=== PATIENT | male | born 1995 | race Caucasian/White ===

== ENCOUNTER 2016-06-26 19:43 | Emergency (ER) | payer OTHER ==
--- NOTE | 2016-06-26 21:20 | REPUSA ---
Clinical history: Pain. Findings: Real-time ultrasound imaging of the testicles and scrotum was performed. The right testicle measures 4.6 x 2.3 x 3.1 cm. The left testicle measures 4.8 x 2.1 x 2.9 cm. The testicles demonstrat e normal echo texture and echogenicity. There are cyst in the epididymal heads bilaterally. The large st on the right measures up to 4 mm, and the largest on the left measures up to 2 mm. Normal color Do ppler flow and arterial waveforms are seen bilaterally. No fluid collections are seen. Impression: Unremarkable ultrasound examination of the testicles. Bilateral epididymal head cysts.
[2016-06-26] MEDS ORDERED: ONDANSETRON 4MG/2ML VIAL (J2405) As Ordered ONE (21:36)
[2016-06-26] MEDS ORDERED: GASTROGRAFIN SOLUTION 30ML (Q9963) As Ordered ONE (21:36)
[2016-06-26] MEDS ORDERED: MORPHINE 4 MG/ML 1ML SYRINGE As Ordered ONE (21:36)
[2016-06-26 21:50] LABS: MEAN CORPUSCULAR HEMOGLOBIN 29.6 pg (27.0-33.0); MEAN CORPUSCULAR HGB CONC 34.4 g/dl (32.0-36.5); MEAN CORPUSCULAR VOLUME 85.8 fl (80.0-96.0); PLATELET COUNT, AUTOMATED 241 k/mm3 (150-450); RED CELL DISTRIBUTION WIDTH 12.6 % (11.5-14.5); WHITE BLOOD COUNT 9.6 K/mm3 (4.0-10.0)
[2016-06-26 22:08] LABS: ALBUMIN 4.1 GM/DL (3.2-5.2); ALBUMIN/GLOBULIN RATIO 1.11 (1.00-1.93); ALKALINE PHOSPHATASE 88 U/L (45-117); ALT/SGPT 36 U/L (12-78); ANION GAP 10 MEQ/L (8-16); AST/SGOT 18 U/L (15-37); BILIRUBIN,DIRECT 0.2 MG/DL (0.0-0.2); BILIRUBIN,TOTAL 0.6 MG/DL (0.2-1.0); BLOOD UREA NITROGEN 18 MG/DL (7-18); CALCIUM LEVEL 8.5 MG/DL (8.5-10.1); CARBON DIOXIDE LEVEL 24 MEQ/L (21-32); CHLORIDE LEVEL 106 MEQ/L (98-107); CREATININE FOR GFR 0.98 MG/DL (0.70-1.30); GLOMERULAR FILTRATION RATE > 60.0 (>60); GLUCOSE, FASTING 103 MG/DL (70-105); POTASSIUM SERUM 3.7 MEQ/L (3.5-5.1); SODIUM LEVEL 140 MEQ/L (136-145); TOTAL PROTEIN 7.8 GM/DL (6.4-8.2)
[2016-06-26 22:27] LABS: BANDS 3 % (< 11)
[2016-06-26] MEDS ORDERED: ISOVUE-370 76% 100ML VIAL (Q9967) As Ordered ONE (23:27)
--- NOTE | 2016-06-26 23:50 | REPUSA ---
CT of the abdomen and pelvis with contrast Clinical statement: Pain. Technique: Multiple axial CT images were obtained from the base of the lungs through the floor of the pelvis utilizing 5 mm axial slices after administration of oral and nonionic intravenous contrast. C oronal and sagittal reconstructions were also obtained. No comparison is available. Findings: Chest: The visualized lung bases are clear. Abdomen: The liver, spleen, pancreas, kidneys, gallbladder, and adrenal glands are unremarkable. The aorta is within normal limits. There is no evidence of abdominal lymphadenopathy or ascites. Pelvis: The bowel is unremarkable, with no obstructive or inflammatory changes. The urinary bladder i s within normal limits. The other pelvic structures appear grossly intact. There is no evidence of pe lvic lymphadenopathy or ascites. Bones: There are no suspicious osseous abnormalities seen. Impression: Unremarkable CT examination of the abdomen and pelvis.
--- NOTE | 2016-06-27 00:22 | EDDOCDS ---
Physician Documentation [facility] Name: Isabel Gonzalez Age: 21 yrs Sex: Male : 1995 Arrival Date: 06/26/2016 Time: 19:43 Bed I9 Private MD: Disposition: 06/26/16 23:54 Discharged to Home/Self Care. Impression: Nausea and vomiting, Diarrhea, unspecified. - Condition is Stable. - Discharge Instructions: Nausea and Vomiting, Viral Gastroenteritis. - Prescriptions for ZOFRAN ODT 4 mg - dissolve 1 tablet by ORAL route 4 times per day As needed do not chew, do not swallow whole; 10 tablet. - Medication Reconciliation, Local Pharmacy Hours form. - Follow up: MARIOLA Anne; When: 2 - 3 days; Reason: Recheck today's complaints. - Problem is new. - Symptoms have improved. - Notes: You were seen in the ED for nausea, vomiting and diarrhea. Bloodwork along with scrotal ultrasound and CT scan of the abdomen and pelvis showed no acute findings. You were treated and improved with medications and IV fluids. You may return home. Continue Zofran as needed for nausea. Encourage clear liquids, then advance your diet as tolerated. Call your primary doctor at [facility] in the morning to arrange to be seen for recheck. Return to the ED for any worsening abdominal pain, pain in the right low side, fever, inability to tolerate oral foods or liquids or any other concerns. Historical: - Allergies: no known allergies; - Home Meds: 1. none - PMHx: none; - PSHx: none; - Social history: Smoking status: Patient states was never smoker of tobacco. No barriers to communication noted, The patient speaks fluent Yakut. - Family history: Not pertinent. - : The pt / caregiver states he / she is not on anticoagulants. Home medication list is obtained from the patient. - Exposure Risk Screening:: None identified. Vital Signs: 06/26 19:44 BP 114 / 69; Pulse 97; Resp 18; Temp 99.3(O); Pulse Ox 99% on R/A; Weight 81.37 kg / kb5 179.39 lbs (M); Height 5 ft. 11 in. (180.34 cm) (R); Pain 6/10; 22:35 BP 107 / 53; Pulse 81; Resp 16; Temp 99.6(O); Pulse Ox 98% on R/A; Pain 0/10; mf4 06/27 00:16 BP 110 / 65; Pulse 80; Resp 18; Temp 98.2(O); Pulse Ox 98% on R/A; Pain 3/10; lf1 06/26 19:44 Body Mass Index 25.02 (81.37 kg, 180.34 cm) kb5 MDM: 06/26 20:27 IV Saline Lock ordered. br1 20:28 morphine 4 mg IVP once ordered. br1 20:28 Ondansetron 4 mg IVP once ordered. br1 20:28 NS 0.9% 1000 ml IV at 150 mL/hr continuous ordered. br1 20:29 CBC with Diff Ordered. EDMS 20:29 BMP Ordered. EDMS 20:29 Liver Profile Ordered. EDMS 20:29 Lipase Ordered. EDMS 20:32 Scrotal, US Ordered. EDMS 20:32 CT ABD & PELVIS: IV and Oral Contrast Ordered. EDMS 20:32 Urinalysis Ordered. EDMS 20:32 Urine Culture Ordered. EDMS 20:42 Diatrizoate Meglumine & Sodium Liquid 10 ml PO once; mix in 290cc of water \T\ 2049 lf1 ordered. 20:42 Diatrizoate Meglumine & Sodium Liquid 10 ml PO once; mix in 290cc of water \T\ 2119 lf1 ordered. 20:57 DUPLEX SCAN LIMITED (DOPPLER) Ordered. EDMS 21:41 Urinalysis Reviewed. br1 21:52 DIFFERENTIAL NO CHARGE Ordered. EDMS 21:52 PLATELET ESTIMATE Ordered. EDMS 22:56 Financial registration complete. zo 22:57 [facility] Payment Agreement was scanned into [email or web address] and attached to record. zo 23:09 CBC with Diff Reviewed. br1 23:09 BMP Reviewed. br1 23:09 Liver Profile Reviewed. br1 23:09 Lipase Reviewed. br1 23:09 PLATELET ESTIMATE Reviewed. br1 23:09 Scrotal, US Reviewed. br1 Administered Medications: 21:52 Drug: Diatrizoate Meglumine & Sodium 10 ml [diatrizoate meglumine and diat.sodium 66 lf1 %-10 % oral solution (10 mL)] Route: PO; 21:52 Drug: Diatrizoate Meglumine & Sodium 10 ml [diatrizoate meglumine and diat.sodium 66 lf1 %-10 % oral solution (10 mL)] Route: PO; 21:53 Drug: morphine 4 mg [morphine 4 mg/mL intravenous cartridge (1 mL)] Route: IVP; Site: lf1 left antecubital; 22:36 Follow up: Response: Pain is decreased 4 06/27 00:21 Follow up: Response: Pain is decreased [facility] 06/26 21:53 Drug: Ondansetron 4 mg [ondansetron HCl 2 mg/mL intravenous solution (2 mL)] Route: lf1 IVP; Site: left antecubital; 06/27 00:21 Follow up: Response: Nausea is decreased [facility] 06/26 21:53 Drug: NS 0.9% 1000 ml [sodium chloride 0.9 % intravenous solution] Route: IV; Rate: 150 lf1 mL/hr; Site: left antecubital; 06/27 00:21 Follow up: IV Status: Infusion discontinued; IV Intake: 600ml lf1 Signatures: Dispatcher [employer] Maynor Rodriguez LisaRN RN lf1 Gustavo Payne MD MD br1 Angelica Bains RN RN rs3 Popeye Blunt LPN mf4 The chart was reviewed and I authenticate all verbal orders and agree with the evaluation and treatment provided.Attachments: 06/26 22:57 [facility] Payment Agreement zo MTDD
--- NOTE | 2016-06-27 00:23 | EDDOCDS ---
Nurse's Notes [facility] Name: Isabel Gonzalez Age: 21 yrs Sex: Male : 1995 Arrival Date: 06/26/2016 Time: 19:43 Bed I9 / 22 Private MD: Diagnosis: Nausea and vomiting;Diarrhea, unspecified Presentation: 06/26 19:57 Presenting complaint: Patient states: Nausea/vomiting/diarrhea since this afternoon. rs3 not resolved with Pepto-Bismol. Adult Sepsis Screening: The patient does not have new or worsening altered mentation. Patient's respiratory rate is less than 22. Systolic blood pressure is greater than 100. Patient has a qSOFA score of 0- Negative Sepsis Screen. Suicide/Homicide risk assessment- the patient denies having any suicidal and/or homicidal ideations and does not present with any other emotional, behavioral or mental health complaints. 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 Transition of care: patient was not received from another setting of care. 19:57 Acuity: NEGRO Level 3 rs3 19:57 Method Of Arrival: Walkin/Carried/Asstd rs3 Triage Assessment: 19:59 General: Appears in no apparent distress. Pain: Location: abdomen. Pt Declines HIV rs3 testing. Historical: - Allergies: no known allergies; - Home Meds: 1. none - PMHx: none; - PSHx: none; - Social history: Smoking status: Patient states was never smoker of tobacco. No barriers to communication noted, The patient speaks fluent Divehi. - Family history: Not pertinent. - : The pt / caregiver states he / she is not on anticoagulants. Home medication list is obtained from the patient. - Exposure Risk Screening:: None identified. Screenin:36 Screening information is obtained from the patient. Fall risk: No risks identified. mf4 Assistance ADL's: requires no assistance with activities of daily living. Abuse/DV Screen: The patient / caregiver reports he/she is: not in a situation that causes fear, pain or injury. Nutritional screening: No deficits noted. Advance Directives: Currently, there is no health care proxy. There is no active DNR order. There is no living will. There is no Power of Brokerage Purchase And Sale Clerk. home support is adequate. Assessment: 21:54 Adult Sepsis Screening: The patient does not have new or worsening altered mentation. lf1 Patient's respiratory rate is less than 22. Systolic blood pressure is greater than 100. Patient has a qSOFA score of 0- Negative Sepsis Screen. General: Appears uncomfortable, Behavior is cooperative. Pain: Location: abdomen Pain currently is 8 out of 10 on a pain scale. Quality of pain is described as crampy, pressure, sharp. Neurological: Level of Consciousness is awake, alert, Oriented to person, place, time. EENT: No deficits noted. Cardiovascular: No deficits noted. Respiratory: Respiratory effort is even, unlabored, Breath sounds are clear bilaterally. GI: Abdomen is flat, Bowel sounds present X 4 quads. Abd is soft Abd is tender to palpation in umbilical area Reports diarrhea, lower abdominal pain, nausea, vomiting. : No deficits noted. Derm: Skin is normal. 23:31 General: Appears in no apparent distress, Behavior is cooperative. Neurological: Level lf1 of Consciousness is awake, alert. Respiratory: Respiratory effort is even, unlabored. Derm: Skin is normal. 23:52 General: Appears in no apparent distress, Behavior is cooperative. Pain: Location: lf1 umbilical area Pain currently is 3 out of 10 on a pain scale. Neurological: Level of Consciousness is awake, alert. Respiratory: Respiratory effort is even, unlabored. GI: Denies nausea. Derm: Injury Description: No known injury. 06/27 00:16 General: Appears in no apparent distress, comfortable, Behavior is cooperative. Pain: lf1 Location: abdomen Pain currently is 3 out of 10 on a pain scale. Neurological: Level of Consciousness is awake, alert, Oriented to person, place, time. EENT: No deficits noted. Respiratory: Respiratory effort is even, unlabored. GI: Denies nausea. Derm: Skin is normal. Vital Signs: 06/26 19:44 BP 114 / 69; Pulse 97; Resp 18; Temp 99.3(O); Pulse Ox 99% on R/A; Weight 81.37 kg (M); kb5 Height 5 ft. 11 in. (180.34 cm) (R); Pain 6/10; 22:35 BP 107 / 53; Pulse 81; Resp 16; Temp 99.6(O); Pulse Ox 98% on R/A; Pain 0/10; mf4 06/27 00:16 BP 110 / 65; Pulse 80; Resp 18; Temp 98.2(O); Pulse Ox 98% on R/A; Pain 3/10; lf1 06/26 19:44 Body Mass Index 25.02 (81.37 kg, 180.34 cm) banner Vitals: 06/26 19:44 Log In Time: June 26, 2016 at 19:12. kb5 ED Course: 19:44 Patient visited by Rj Meyer PCA. kb5 19:44 Patient moved to Waiting kb5 19:47 Patient visited by Rj Meyer PCA. kb5 19:58 Triage Initiated rs3 19:59 Patient moved to Pre RCE rs3 20:19 Patient moved to I9 / ar3 20:20 Gustavo Payne MD is Attending Physician. br1 20:27 Patient visited by Gustavo Payne MD. br1 20:53 Patient moved to Ultrasound en 21:14 Patient moved to I9 en 21:35 Lipase Sent. mf4 21:35 Liver Profile Sent. mf4 21:36 The patient / caregiver is instructed regarding the plan of care and ED course. mf4 21:36 BMP Sent. mf4 21:36 CBC with Diff Sent. mf4 21:36 Inserted saline lock: 20 gauge in left antecubital area and blood collected. The mf4 patient tolerated the procedure well. 21:55 Patient visited by Sita Carlson RN. lf1 22:04 Scrotal, US Returned. EDMS 22:40 DIFFERENTIAL NO CHARGE Sent. mf4 22:57 [facility] Payment Agreement was scanned into [employer] and attached to record. zo 23:04 Patient name changed from Isabel\S\\S\Carlos\S\ to Isabel\S\ \S\Carlos. EDMS 23:31 Patient visited by Sita Carlson RN. lf1 23:52 Patient visited by Gustavo Payne MD. br1 23:54 [facility] is Referral Physician. br1 23:55 CT ABD & PELVIS: IV and Oral Contrast Returned. EDMS 06/27 00:16 Patient visited by Sita Carlson RN. lf1 00:16 Discontinued IV lock intact, bleeding controlled, pressure dressing applied, No lf1 redness/swelling at site. No procedures done that require assistance. Administered Medications: 06/26 21:52 Drug: Diatrizoate Meglumine & Sodium 10 ml [diatrizoate meglumine and diat.sodium 66 lf1 %-10 % oral solution (10 mL)] Route: PO; 21:52 Drug: Diatrizoate Meglumine & Sodium 10 ml [diatrizoate meglumine and diat.sodium 66 lf1 %-10 % oral solution (10 mL)] Route: PO; 21:53 Drug: morphine 4 mg [morphine 4 mg/mL intravenous cartridge (1 mL)] Route: IVP; Site: lf1 left antecubital; 22:36 Follow up: Response: Pain is decreased 4 06/27 00:21 Follow up: Response: Pain is decreased [facility] 06/26 21:53 Drug: Ondansetron 4 mg [ondansetron HCl 2 mg/mL intravenous solution (2 mL)] Route: lf1 IVP; Site: left antecubital; 06/27 00:21 Follow up: Response: Nausea is decreased [facility] 06/26 21:53 Drug: NS 0.9% 1000 ml [sodium chloride 0.9 % intravenous solution] Route: IV; Rate: 150 lf1 mL/hr; Site: left antecubital; 06/27 00:21 Follow up: IV Status: Infusion discontinued; IV Intake: 600ml 1 Intake: 00:21 IV: 600.00ml; Total: 600.00ml. lf1 Order Results: Lab Order: CBC with Diff; SPEC'M 06/26/16 21:31 Test: WHITE BLOOD COUNT; Value: 9.6; Range: 4.0-10.0; Units: K/mm3; Status: F Test: RED BLOOD COUNT; Value: 5.28; Range: 4.30-6.10; Units: M/mm3; Status: F Test: HEMOGLOBIN; Value: 15.6; Range: 14.0-18.0; Units: g/dl; Status: F Test: HEMATOCRIT; Value: 45.4; Range: 42.0-52.0; Units: %; Status: F Test: MEAN CORPUSCULAR VOLUME; Value: 85.8; Range: 80.0-96.0; Units: fl; Status: F Test: MEAN CORPUSCULAR HEMOGLOBIN; Value: 29.6; Range: 27.0-33.0; Units: pg; Status: F Test: MEAN CORPUSCULAR HGB CONC; Value: 34.4; Range: 32.0-36.5; Units: g/dl; Status: F Test: RED CELL DISTRIBUTION WIDTH; Value: 12.6; Range: 11.5-14.5; Units: %; Status: F Test: PLATELET COUNT, AUTOMATED; Value: 241; Range: 150-450; Units: k/mm3; Status: F Test: NEUTROPHILS; Value: 88; Range: 35-75; Abnormal: Above high normal; Units: %; Status: F Test: BANDS; Value: 3; Range: < 11; Units: %; Status: F Test: LYMPHOCYTES; Value: 5; Range: 16-52; Abnormal: Below low normal; Units: %; Status: F Test: MONOCYTES; Value: 4; Range: 0-8; Units: %; Status: F Test: RBC MORPHOLOGY; Value: NORMAL; Status: F Lab Order: [facility]; [facility] 06/26/16 21:31 Test: GLUCOSE, FASTING; Value: 103; Range: 70-105; Units: MG/DL; Status: F Test: BLOOD UREA NITROGEN; Value: 18; Range: 7-18; Units: MG/DL; Status: F Test: CREATININE FOR GFR; Value: 0.98; Range: 0.70-1.30; Units: MG/DL; Status: F Test: GLOMERULAR FILTRATION RATE; Value: > 60.0; Range: >60; Status: F Test: SODIUM LEVEL; Value: 140; Range: 136-145; Units: MEQ/L; Status: F Test: POTASSIUM SERUM; Value: 3.7; Range: 3.5-5.1; Units: MEQ/L; Status: F Test: CHLORIDE LEVEL; Value: 106; Range: 98-107; Units: MEQ/L; Status: F Test: CARBON DIOXIDE LEVEL; Value: 24; Range: 21-32; Units: MEQ/L; Status: F Test: ANION GAP; Value: 10; Range: 8-16; Units: MEQ/L; Status: F Test: CALCIUM LEVEL; Value: 8.5; Range: 8.5-10.1; Units: MG/DL; Status: F Test Note: ; Units are mL/min/1.73 m2 Chronic Kidney Disease Staging per NKF: Stage I & II GFR >=60 Normal to Mildly Decreased Stage III GFR 30-59 Moderately Decreased Stage IV GFR 15-29 Severely Decreased Stage V GFR <15 Very Little GFR Left ESRD GFR <15 on [employer] 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[employer]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 Lab Order: Liver Profile; [facility] 06/26/16 21:31 Test: AST/SGOT; Value: 18; Range: 15-37; Units: U/L; Status: F Test: ALT/SGPT; Value: 36; Range: 12-78; Units: U/L; Status: F Test: ALKALINE PHOSPHATASE; Value: 88; Range: 45-117; Units: U/L; Status: F Test: BILIRUBIN,TOTAL; Value: 0.6; Range: 0.2-1.0; Units: MG/DL; Status: F Test: BILIRUBIN,DIRECT; Value: 0.2; Range: 0.0-0.2; Units: MG/DL; Status: F Test: TOTAL PROTEIN; Value: 7.8; Range: 6.4-8.2; Units: GM/DL; Status: F Test: ALBUMIN; Value: 4.1; Range: 3.2-5.2; Units: GM/DL; Status: F Test: ALBUMIN/GLOBULIN RATIO; Value: 1.11; Range: 1.00-1.93; Status: F Lab Order: Lipase; [facility] 06/26/16 21:31 Test: LIPASE; Value: 97; Range: 73-393; Units: U/L; Status: F Lab Order: Urinalysis; [facility] 06/26/16 20:46 Test: APPEARANCE, URINE; Value: CLEAR; Range: CLEAR; Status: F Test: COLOR, URINE; Value: YELLOW; Range: YELLOW; Status: F Test: PH,URINE; Value: 6.0; Range: 5.0-9.0; Units: UNITS; Status: F Test: SPECIFIC GRAVITY URINE AUTO; Value: 1.025; Range: 1.002-1.035; Status: F Test: PROTEIN, URINE AUTO; Value: NEGATIVE; Range: NEGATIVE; Units: mg/dL; Status: F Test: GLUCOSE, URINE (UA) AUTO; Value: NEGATIVE; Range: NEGATIVE; Units: mg/dL; Status: F Test: KETONE, URINE AUTO; Value: NEGATIVE; Range: NEGATIVE; Units: mg/dL; Status: F Test: UROBILINOGEN, URINE AUTO; Value: 0.2; Range: 0.0-2.0; Units: mg/dL; Status: F Test: BILIRUBIN, URINE AUTO; Value: NEGATIVE; Range: NEGATIVE; Status: F Test: NITRITE, URINE AUTO; Value: NEGATIVE; Range: NEGATIVE; Status: F Test: LEUKOCYTE ESTERASE, URINE AUTO; Value: NEGATIVE; Range: NEGATIVE; Status: F Test: BLOOD, URINE BLOOD; Value: 1+; Range: NEGATIVE; Abnormal: Above high normal; Status: F Test: WBC, URINE AUTO; Value: 0; Range: 0-3; Units: /HPF; Status: F Test: RBC, URINE AUTO; Value: 4; Range: 0-3; Abnormal: Above high normal; Units: /HPF; Status: F Test: BACTERIA, URINE AUTO; Value: NEGATIVE; Range: NEGATIVE; Status: F Test: SQUAMOUS EPITHELIAL CELL UR AU; Value: 0; Range: 0-6; Units: /HPF; Status: F Test: MUCUS, URINE; Value: SMALL; Range: NEGATIVE; Status: F Test: HYALINE CAST, URINE AUTO; Value: 0; Range: 0-1; Units: /LPF; Status: F Lab Order: PLATELET ESTIMATE; SPEC'M 06/26/16 21:31 Test: PLATELET ESTIMATE; Value: NORMAL; Range: NORMAL; Status: F Radiology Order: CT ABD & PELVIS: IV and Oral Contrast Test: CT ABD & PELVIS: IV and Oral Contrast REASON FOR EXAMINATION: Abdomen Pain; ; CT of the abdomen and pelvis with contrast; Clinical statement: Pain.; Technique: Multiple axial CT images were obtained from the base of the lungs through the floor of the; pelvis utilizing 5 mm axial slices after administration of oral and nonionic intravenous contrast. C; oronal and sagittal reconstructions were also obtained.; No comparison is available.; Findings:; Chest: The visualized lung bases are clear.; Abdomen: The liver, spleen, pancreas, kidneys, gallbladder, and adrenal glands are unremarkable. The; aorta is within normal limits. There is no evidence of abdominal lymphadenopathy or ascites.; Pelvis: The bowel is unremarkable, with no obstructive or inflammatory changes. The urinary bladder i; s within normal limits. The other pelvic structures appear grossly intact. There is no evidence of pe; lvic lymphadenopathy or ascites.; Bones: There are no suspicious osseous abnormalities seen.; Impression: Unremarkable CT examination of the abdomen and pelvis.; ; Radiology Order: Scrotal, US Test: Scrotal, US REASON FOR EXAMINATION: testicular pain r/o torsion; ; Clinical history: Pain.; Findings: Real-time ultrasound imaging of the testicles and scrotum was performed. The right testicle; measures 4.6 x 2.3 x 3.1 cm. The left testicle measures 4.8 x 2.1 x 2.9 cm. The testicles demonstrat; e normal echo texture and echogenicity. There are cyst in the epididymal heads bilaterally. The large; st on the right measures up to 4 mm, and the largest on the left measures up to 2 mm. Normal color Do; ppler flow and arterial waveforms are seen bilaterally. No fluid collections are seen.; Impression: Unremarkable ultrasound examination of the testicles. Bilateral epididymal head cysts.; ; Outcome: 06/26 23:54 Discharge ordered by Provider. br1 06/27 00:16 Discharge Assessment: Patient awake, alert and oriented x 3. No cognitive and/or lf1 functional deficits noted. Patient verbalized understanding of disposition instructions. Patient awake and alert. Oriented to person, place and time. The following High Risk Discharge criteria are identified: None. Discharged to home ambulatory, with significant other. Condition: improved. Discharge instructions given to patient, Instructed on discharge instructions, follow up and referral plans. medication usage, diet, Demonstrated understanding of instructions, medications, Pt was receptive of discharge instructions/ teaching. Prescriptions given X 1. CT Study completed. Ultrasound Study completed. Property :Personal belongings accompany Pt. 00:20 Discharge Assessment: patient administered narcotics - yes. Pt provided with safe lf1 discharge. 00:22 Patient left the ED. lf1 Signatures: Dispatcher [employer] EDMS Maynor Urban Kristopher, INDUSTRIAL ELECTRICAL ENGINEER INDUSTRIAL ELECTRICAL ENGINEER kb5 Sita Carlson RN RN lf1 Gustavo Payne MD MD br1 Angelica Bains RN RN rs3 Mary, Francy, INDUSTRIAL ELECTRICAL ENGINEER INDUSTRIAL ELECTRICAL ENGINEER ar3 Popeye Blunt,FLEET SALES MANAGER FLEET SALES MANAGER mf4 Destini, Cassia en MTDD
--- NOTE | 2016-06-29 01:23 | EDDOCDS ---
Nurse's Notes [facility] Name: Isabel Gonzalez Age: 21 yrs Sex: Male : 1995 Arrival Date: 06/26/2016 Time: 19:43 Bed I9 / 22 Private MD: Diagnosis: Nausea and vomiting;Diarrhea, unspecified Presentation: 06/26 19:57 Presenting complaint: Patient states: Nausea/vomiting/diarrhea since this afternoon. rs3 not resolved with Pepto-Bismol. Adult Sepsis Screening: The patient does not have new or worsening altered mentation. Patient's respiratory rate is less than 22. Systolic blood pressure is greater than 100. Patient has a qSOFA score of 0- Negative Sepsis Screen. Suicide/Homicide risk assessment- the patient denies having any suicidal and/or homicidal ideations and does not present with any other emotional, behavioral or mental health complaints. 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 Transition of care: patient was not received from another setting of care. 19:57 Acuity: NEGRO Level 3 rs3 19:57 Method Of Arrival: Walkin/Carried/Asstd rs3 Triage Assessment: 19:59 General: Appears in no apparent distress. Pain: Location: abdomen. Pt Declines HIV rs3 testing. Historical: - Allergies: no known allergies; - Home Meds: 1. none - PMHx: none; - PSHx: none; - Social history: Smoking status: Patient states was never smoker of tobacco. No barriers to communication noted, The patient speaks fluent Pashto. - Family history: Not pertinent. - : The pt / caregiver states he / she is not on anticoagulants. Home medication list is obtained from the patient. - Exposure Risk Screening:: None identified. Screenin:36 Screening information is obtained from the patient. Fall risk: No risks identified. mf4 Assistance ADL's: requires no assistance with activities of daily living. Abuse/DV Screen: The patient / caregiver reports he/she is: not in a situation that causes fear, pain or injury. Nutritional screening: No deficits noted. Advance Directives: Currently, there is no health care proxy. There is no active DNR order. There is no living will. There is no Power of Fire Watcher. home support is adequate. Assessment: 21:54 Adult Sepsis Screening: The patient does not have new or worsening altered mentation. lf1 Patient's respiratory rate is less than 22. Systolic blood pressure is greater than 100. Patient has a qSOFA score of 0- Negative Sepsis Screen. General: Appears uncomfortable, Behavior is cooperative. Pain: Location: abdomen Pain currently is 8 out of 10 on a pain scale. Quality of pain is described as crampy, pressure, sharp. Neurological: Level of Consciousness is awake, alert, Oriented to person, place, time. EENT: No deficits noted. Cardiovascular: No deficits noted. Respiratory: Respiratory effort is even, unlabored, Breath sounds are clear bilaterally. GI: Abdomen is flat, Bowel sounds present X 4 quads. Abd is soft Abd is tender to palpation in umbilical area Reports diarrhea, lower abdominal pain, nausea, vomiting. : No deficits noted. Derm: Skin is normal. 23:31 General: Appears in no apparent distress, Behavior is cooperative. Neurological: Level lf1 of Consciousness is awake, alert. Respiratory: Respiratory effort is even, unlabored. Derm: Skin is normal. 23:52 General: Appears in no apparent distress, Behavior is cooperative. Pain: Location: lf1 umbilical area Pain currently is 3 out of 10 on a pain scale. Neurological: Level of Consciousness is awake, alert. Respiratory: Respiratory effort is even, unlabored. GI: Denies nausea. Derm: Injury Description: No known injury. 06/27 00:16 General: Appears in no apparent distress, comfortable, Behavior is cooperative. Pain: lf1 Location: abdomen Pain currently is 3 out of 10 on a pain scale. Neurological: Level of Consciousness is awake, alert, Oriented to person, place, time. EENT: No deficits noted. Respiratory: Respiratory effort is even, unlabored. GI: Denies nausea. Derm: Skin is normal. Vital Signs: 06/26 19:44 BP 114 / 69; Pulse 97; Resp 18; Temp 99.3(O); Pulse Ox 99% on R/A; Weight 81.37 kg (M); kb5 Height 5 ft. 11 in. (180.34 cm) (R); Pain 6/10; 22:35 BP 107 / 53; Pulse 81; Resp 16; Temp 99.6(O); Pulse Ox 98% on R/A; Pain 0/10; mf4 06/27 00:16 BP 110 / 65; Pulse 80; Resp 18; Temp 98.2(O); Pulse Ox 98% on R/A; Pain 3/10; lf1 06/26 19:44 Body Mass Index 25.02 (81.37 kg, 180.34 cm) [facility] Vitals: 06/26 19:44 Log In Time: June 26, 2016 at 19:12. kb5 ED Course: 19:44 Patient visited by Rj Meyer PCA. kb5 19:44 Patient moved to Waiting kb5 19:47 Patient visited by Rj Meyer PCA. kb5 19:58 Triage Initiated rs3 19:59 Patient moved to Pre RCE rs3 20:19 Patient moved to I9 / ar3 20:20 Gustavo Payne MD is Attending Physician. br1 20:27 Patient visited by Gustavo Payne MD. br1 20:53 Patient moved to Ultrasound en 21:14 Patient moved to I9 en 21:35 Lipase Sent. mf4 21:35 Liver Profile Sent. mf4 21:36 The patient / caregiver is instructed regarding the plan of care and ED course. mf4 21:36 BMP Sent. mf4 21:36 CBC with Diff Sent. mf4 21:36 Inserted saline lock: 20 gauge in left antecubital area and blood collected. The mf4 patient tolerated the procedure well. 21:55 Patient visited by Sita Carlson RN. lf1 22:04 Scrotal, US Returned. EDMS 22:40 DIFFERENTIAL NO CHARGE Sent. mf4 22:57 [place] Payment Agreement was scanned into As Seen on TV and attached to record. zo 23:04 Patient name changed from Isabel\S\\S\Carlos\S\ to Isabel\S\ \S\Carlos. EDMS 23:31 Patient visited by Sita Carlson RN. lf1 23:52 Patient visited by Gustavo Payne MD. br1 23:54 [facility] is Referral Physician. br1 23:55 CT ABD & PELVIS: IV and Oral Contrast Returned. EDMS 06/27 00:16 Patient visited by Sita Carlson RN. lf1 00:16 Discontinued IV lock intact, bleeding controlled, pressure dressing applied, No lf1 redness/swelling at site. No procedures done that require assistance. 12:03 T-Sheet-- Draft Copy was scanned into As Seen on TV and attached to record. gb 12:04 Radiology Report was scanned into As Seen on TV and attached to record. gb Administered Medications: 06/26 21:52 Drug: Diatrizoate Meglumine & Sodium 10 ml [diatrizoate meglumine and diat.sodium 66 lf1 %-10 % oral solution (10 mL)] Route: PO; 21:52 Drug: Diatrizoate Meglumine & Sodium 10 ml [diatrizoate meglumine and diat.sodium 66 lf1 %-10 % oral solution (10 mL)] Route: PO; 21:53 Drug: morphine 4 mg [morphine 4 mg/mL intravenous cartridge (1 mL)] Route: IVP; Site: lf1 left antecubital; 22:36 Follow up: Response: Pain is decreased 4 06/27 00:21 Follow up: Response: Pain is decreased [facility] 06/26 21:53 Drug: Ondansetron 4 mg [ondansetron HCl 2 mg/mL intravenous solution (2 mL)] Route: lf1 IVP; Site: left antecubital; 06/27 00:21 Follow up: Response: Nausea is decreased 1 06/26 21:53 Drug: NS 0.9% 1000 ml [sodium chloride 0.9 % intravenous solution] Route: IV; Rate: 150 lf1 mL/hr; Site: left antecubital; 06/27 00:21 Follow up: IV Status: Infusion discontinued; IV Intake: 600ml 1 Intake: 00:21 IV: 600.00ml; Total: 600.00ml. 1 Order Results: Lab Order: CBC with Diff; SPEC'M 06/26/16 21:31 Test: WHITE BLOOD COUNT; Value: 9.6; Range: 4.0-10.0; Units: K/mm3; Status: F Test: RED BLOOD COUNT; Value: 5.28; Range: 4.30-6.10; Units: M/mm3; Status: F Test: HEMOGLOBIN; Value: 15.6; Range: 14.0-18.0; Units: g/dl; Status: F Test: HEMATOCRIT; Value: 45.4; Range: 42.0-52.0; Units: %; Status: F Test: MEAN CORPUSCULAR VOLUME; Value: 85.8; Range: 80.0-96.0; Units: fl; Status: F Test: MEAN CORPUSCULAR HEMOGLOBIN; Value: 29.6; Range: 27.0-33.0; Units: pg; Status: F Test: MEAN CORPUSCULAR HGB CONC; Value: 34.4; Range: 32.0-36.5; Units: g/dl; Status: F Test: RED CELL DISTRIBUTION WIDTH; Value: 12.6; Range: 11.5-14.5; Units: %; Status: F Test: PLATELET COUNT, AUTOMATED; Value: 241; Range: 150-450; Units: k/mm3; Status: F Test: NEUTROPHILS; Value: 88; Range: 35-75; Abnormal: Above high normal; Units: %; Status: F Test: BANDS; Value: 3; Range: < 11; Units: %; Status: F Test: LYMPHOCYTES; Value: 5; Range: 16-52; Abnormal: Below low normal; Units: %; Status: F Test: MONOCYTES; Value: 4; Range: 0-8; Units: %; Status: F Test: RBC MORPHOLOGY; Value: NORMAL; Status: F Lab Order: [facility]; SPEC'M 06/26/16 21:31 Test: GLUCOSE, FASTING; Value: 103; Range: 70-105; Units: MG/DL; Status: F Test: BLOOD UREA NITROGEN; Value: 18; Range: 7-18; Units: MG/DL; Status: F Test: CREATININE FOR GFR; Value: 0.98; Range: 0.70-1.30; Units: MG/DL; Status: F Test: GLOMERULAR FILTRATION RATE; Value: > 60.0; Range: >60; Status: F Test: SODIUM LEVEL; Value: 140; Range: 136-145; Units: MEQ/L; Status: F Test: POTASSIUM SERUM; Value: 3.7; Range: 3.5-5.1; Units: MEQ/L; Status: F Test: CHLORIDE LEVEL; Value: 106; Range: 98-107; Units: MEQ/L; Status: F Test: CARBON DIOXIDE LEVEL; Value: 24; Range: 21-32; Units: MEQ/L; Status: F Test: ANION GAP; Value: 10; Range: 8-16; Units: MEQ/L; Status: F Test: CALCIUM LEVEL; Value: 8.5; Range: 8.5-10.1; Units: MG/DL; Status: F Test Note: ; Units are mL/min/1.73 m2 Chronic Kidney Disease Staging per NKF: Stage I & II GFR >=60 Normal to Mildly Decreased Stage III GFR 30-59 Moderately Decreased Stage IV GFR 15-29 Severely Decreased Stage V GFR <15 Very Little GFR Left ESRD GFR <15 on [facility] Lab Order: Liver Profile; [facility] 06/26/16 21:31 Test: AST/SGOT; Value: 18; Range: 15-37; Units: U/L; Status: F Test: ALT/SGPT; Value: 36; Range: 12-78; Units: U/L; Status: F Test: ALKALINE PHOSPHATASE; Value: 88; Range: 45-117; Units: U/L; Status: F Test: BILIRUBIN,TOTAL; Value: 0.6; Range: 0.2-1.0; Units: MG/DL; Status: F Test: BILIRUBIN,DIRECT; Value: 0.2; Range: 0.0-0.2; Units: MG/DL; Status: F Test: TOTAL PROTEIN; Value: 7.8; Range: 6.4-8.2; Units: GM/DL; Status: F Test: ALBUMIN; Value: 4.1; Range: 3.2-5.2; Units: GM/DL; Status: F Test: ALBUMIN/GLOBULIN RATIO; Value: 1.11; Range: 1.00-1.93; Status: F Lab Order: Lipase; [facility] 06/26/16 21:31 Test: LIPASE; Value: 97; Range: 73-393; Units: U/L; Status: F Lab Order: Urinalysis; [facility] 06/26/16 20:46 Test: APPEARANCE, URINE; Value: CLEAR; Range: CLEAR; Status: F Test: COLOR, URINE; Value: YELLOW; Range: YELLOW; Status: F Test: PH,URINE; Value: 6.0; Range: 5.0-9.0; Units: UNITS; Status: F Test: SPECIFIC GRAVITY URINE AUTO; Value: 1.025; Range: 1.002-1.035; Status: F Test: PROTEIN, URINE AUTO; Value: NEGATIVE; Range: NEGATIVE; Units: mg/dL; Status: F Test: GLUCOSE, URINE (UA) AUTO; Value: NEGATIVE; Range: NEGATIVE; Units: mg/dL; Status: F Test: KETONE, URINE AUTO; Value: NEGATIVE; Range: NEGATIVE; Units: mg/dL; Status: F Test: UROBILINOGEN, URINE AUTO; Value: 0.2; Range: 0.0-2.0; Units: mg/dL; Status: F Test: BILIRUBIN, URINE AUTO; Value: NEGATIVE; Range: NEGATIVE; Status: F Test: NITRITE, URINE AUTO; Value: NEGATIVE; Range: NEGATIVE; Status: F Test: LEUKOCYTE ESTERASE, URINE AUTO; Value: NEGATIVE; Range: NEGATIVE; Status: F Test: BLOOD, URINE BLOOD; Value: 1+; Range: NEGATIVE; Abnormal: Above high normal; Status: F Test: WBC, URINE AUTO; Value: 0; Range: 0-3; Units: /HPF; Status: F Test: RBC, URINE AUTO; Value: 4; Range: 0-3; Abnormal: Above high normal; Units: /HPF; Status: F Test: BACTERIA, URINE AUTO; Value: NEGATIVE; Range: NEGATIVE; Status: F Test: SQUAMOUS EPITHELIAL CELL UR AU; Value: 0; Range: 0-6; Units: /HPF; Status: F Test: MUCUS, URINE; Value: SMALL; Range: NEGATIVE; Status: F Test: HYALINE CAST, URINE AUTO; Value: 0; Range: 0-1; Units: /LPF; Status: F Lab Order: Urine Culture; SPEC'M 06/26/16 20:46 Test: URINE CULTURE; Value: <EXTERNAL COMMENT eCWMed> FULL REPORT IN LAB NOTES (eCW and Medent).; Status: F Test: URINE CULTURE; Value: URINE CULTURE RESULT NO GROWTH; Status: F Lab Order: PLATELET ESTIMATE; SPEC'M 06/26/16 21:31 Test: PLATELET ESTIMATE; Value: NORMAL; Range: NORMAL; Status: F Radiology Order: CT ABD & PELVIS: IV and Oral Contrast Test: CT ABD & PELVIS: IV and Oral Contrast REASON FOR EXAMINATION: Abdomen Pain; ; CT of the abdomen and pelvis with contrast; Clinical statement: Pain.; Technique: Multiple axial CT images were obtained from the base of the lungs through the floor of the; pelvis utilizing 5 mm axial slices after administration of oral and nonionic intravenous contrast. C; oronal and sagittal reconstructions were also obtained.; No comparison is available.; Findings:; Chest: The visualized lung bases are clear.; Abdomen: The liver, spleen, pancreas, kidneys, gallbladder, and adrenal glands are unremarkable. The; aorta is within normal limits. There is no evidence of abdominal lymphadenopathy or ascites.; Pelvis: The bowel is unremarkable, with no obstructive or inflammatory changes. The urinary bladder i; s within normal limits. The other pelvic structures appear grossly intact. There is no evidence of pe; lvic lymphadenopathy or ascites.; Bones: There are no suspicious osseous abnormalities seen.; Impression: Unremarkable CT examination of the abdomen and pelvis.; ; Radiology Order: Scrotal, US Test: Scrotal, US REASON FOR EXAMINATION: testicular pain r/o torsion; ; Clinical history: Pain.; Findings: Real-time ultrasound imaging of the testicles and scrotum was performed. The right testicle; measures 4.6 x 2.3 x 3.1 cm. The left testicle measures 4.8 x 2.1 x 2.9 cm. The testicles demonstrat; e normal echo texture and echogenicity. There are cyst in the epididymal heads bilaterally. The large; st on the right measures up to 4 mm, and the largest on the left measures up to 2 mm. Normal color Do; ppler flow and arterial waveforms are seen bilaterally. No fluid collections are seen.; Impression: Unremarkable ultrasound examination of the testicles. Bilateral epididymal head cysts.; ; Outcome: 06/26 23:54 Discharge ordered by Provider. br1 06/27 00:16 Discharge Assessment: Patient awake, alert and oriented x 3. No cognitive and/or lf1 functional deficits noted. Patient verbalized understanding of disposition instructions. Patient awake and alert. Oriented to person, place and time. The following High Risk Discharge criteria are identified: None. Discharged to home ambulatory, with significant other. Condition: improved. Discharge instructions given to patient, Instructed on discharge instructions, follow up and referral plans. medication usage, diet, Demonstrated understanding of instructions, medications, Pt was receptive of discharge instructions/ teaching. Prescriptions given X 1. CT Study completed. Ultrasound Study completed. Property :Personal belongings accompany Pt. 00:20 Discharge Assessment: patient administered narcotics - yes. Pt provided with safe lf1 discharge. 00:22 Patient left the ED. lf1 Signatures: Dispatcher [employer] EDKarolina Thurston, Maynor Brumfield Kristopher, MANAGER WEALTH MANAGEMENT MANAGER WEALTH MANAGEMENT kb5 Sita Carlson RN RN lf1 Gustavo Payne MD MD br1 Angelica Bains RN RN rs3 Francy Hernandez, MANAGER WEALTH MANAGEMENT MANAGER WEALTH MANAGEMENT ar3 Popeye Blunt,BUFFER INFLATED PAD BUFFER INFLATED PAD mf4 Cassia Georges Chart Complete MTDD
--- NOTE | 2016-06-29 01:23 | EDDOCDS ---
Physician Documentation [facility] Name: Isabel Gonzalez Age: 21 yrs Sex: Male : 1995 Arrival Date: 06/26/2016 Time: 19:43 Bed I9 Private MD: Disposition: 06/26/16 23:54 Discharged to Home/Self Care. Impression: Nausea and vomiting, Diarrhea, unspecified. - Condition is Stable. - Discharge Instructions: Nausea and Vomiting, Viral Gastroenteritis. - Prescriptions for ZOFRAN ODT 4 mg - dissolve 1 tablet by ORAL route 4 times per day As needed do not chew, do not swallow whole; 10 tablet. - Medication Reconciliation, Local Pharmacy Hours form. - Follow up: MARIOLA Anne; When: 2 - 3 days; Reason: Recheck today's complaints. - Problem is new. - Symptoms have improved. - Notes: You were seen in the ED for nausea, vomiting and diarrhea. Bloodwork along with scrotal ultrasound and CT scan of the abdomen and pelvis showed no acute findings. You were treated and improved with medications and IV fluids. You may return home. Continue Zofran as needed for nausea. Encourage clear liquids, then advance your diet as tolerated. Call your primary doctor at [facility] in the morning to arrange to be seen for recheck. Return to the ED for any worsening abdominal pain, pain in the right low side, fever, inability to tolerate oral foods or liquids or any other concerns. Historical: - Allergies: no known allergies; - Home Meds: 1. none - PMHx: none; - PSHx: none; - Social history: Smoking status: Patient states was never smoker of tobacco. No barriers to communication noted, The patient speaks fluent Sami. - Family history: Not pertinent. - : The pt / caregiver states he / she is not on anticoagulants. Home medication list is obtained from the patient. - Exposure Risk Screening:: None identified. Vital Signs: 06/26 19:44 BP 114 / 69; Pulse 97; Resp 18; Temp 99.3(O); Pulse Ox 99% on R/A; Weight 81.37 kg / kb5 179.39 lbs (M); Height 5 ft. 11 in. (180.34 cm) (R); Pain 6/10; 22:35 BP 107 / 53; Pulse 81; Resp 16; Temp 99.6(O); Pulse Ox 98% on R/A; Pain 0/10; mf4 06/27 00:16 BP 110 / 65; Pulse 80; Resp 18; Temp 98.2(O); Pulse Ox 98% on R/A; Pain 3/10; lf1 06/26 19:44 Body Mass Index 25.02 (81.37 kg, 180.34 cm) kb5 MDM: 06/26 20:27 IV Saline Lock ordered. br1 20:28 morphine 4 mg IVP once ordered. br1 20:28 Ondansetron 4 mg IVP once ordered. br1 20:28 NS 0.9% 1000 ml IV at 150 mL/hr continuous ordered. br1 20:29 CBC with Diff Ordered. EDMS 20:29 BMP Ordered. EDMS 20:29 Liver Profile Ordered. EDMS 20:29 Lipase Ordered. EDMS 20:32 Scrotal, US Ordered. EDMS 20:32 CT ABD & PELVIS: IV and Oral Contrast Ordered. EDMS 20:32 Urinalysis Ordered. EDMS 20:32 Urine Culture Ordered. EDMS 20:42 Diatrizoate Meglumine & Sodium Liquid 10 ml PO once; mix in 290cc of water \T\ 2049 lf1 ordered. 20:42 Diatrizoate Meglumine & Sodium Liquid 10 ml PO once; mix in 290cc of water \T\ 2119 lf1 ordered. 20:57 DUPLEX SCAN LIMITED (DOPPLER) Ordered. EDMS 21:41 Urinalysis Reviewed. br1 21:52 DIFFERENTIAL NO CHARGE Ordered. EDMS 21:52 PLATELET ESTIMATE Ordered. EDMS 22:56 Financial registration complete. zo 22:57 [place] Payment Agreement was scanned into [employer] and attached to record. zo 23:09 CBC with Diff Reviewed. br1 23:09 BMP Reviewed. br1 23:09 Liver Profile Reviewed. br1 23:09 Lipase Reviewed. br1 23:09 PLATELET ESTIMATE Reviewed. br1 23:09 Scrotal, US Reviewed. br1 06/27 12:03 T-Sheet-- Draft Copy was scanned into LoiLo and attached to record. gb 12:04 Radiology Report was scanned into [employer]Lo and attached to record. gb Administered Medications: 06/26 21:52 Drug: Diatrizoate Meglumine & Sodium 10 ml [diatrizoate meglumine and diat.sodium 66 lf1 %-10 % oral solution (10 mL)] Route: PO; 21:52 Drug: Diatrizoate Meglumine & Sodium 10 ml [diatrizoate meglumine and diat.sodium 66 lf1 %-10 % oral solution (10 mL)] Route: PO; 21:53 Drug: morphine 4 mg [morphine 4 mg/mL intravenous cartridge (1 mL)] Route: IVP; Site: lf1 left antecubital; 22:36 Follow up: Response: Pain is decreased 4 06/27 00:21 Follow up: Response: Pain is decreased [facility] 06/26 21:53 Drug: Ondansetron 4 mg [ondansetron HCl 2 mg/mL intravenous solution (2 mL)] Route: lf1 IVP; Site: left antecubital; 06/27 00:21 Follow up: Response: Nausea is decreased [facility] 06/26 21:53 Drug: NS 0.9% 1000 ml [sodium chloride 0.9 % intravenous solution] Route: IV; Rate: 150 lf1 mL/hr; Site: left antecubital; 06/27 00:21 Follow up: IV Status: Infusion discontinued; IV Intake: 600ml 1 Signatures: Dispatcher [employer] EDMS Karolina Corbin, Vishnu Reg Maynor Lee Lisa, RN RN lf1 Gustavo Payne MD MD br1 Angelica Bains RN RN rs3 Popeye Blunt DISPATCHER RADIO 4 The chart was reviewed and I authenticate all verbal orders and agree with the evaluation and treatment provided.Attachments: 06/26 22:57 [place] Payment Agreement zo 06/27 12:03 T-Sheet-- Draft Copy gb Chart Complete MTDD
--- NOTE | 2016-06-29 01:24 | EDDOCDS ---
Physician Documentation [facility] Name: Isabel Gonzalez Age: 21 yrs Sex: Male : 1995 Arrival Date: 06/26/2016 Time: 19:43 Bed I9 Private MD: Disposition: 06/26/16 23:54 Discharged to Home/Self Care. Impression: Nausea and vomiting, Diarrhea, unspecified. - Condition is Stable. - Discharge Instructions: Nausea and Vomiting, Viral Gastroenteritis. - Prescriptions for ZOFRAN ODT 4 mg - dissolve 1 tablet by ORAL route 4 times per day As needed do not chew, do not swallow whole; 10 tablet. - Medication Reconciliation, Local Pharmacy Hours form. - Follow up: MARIOLA Anne; When: 2 - 3 days; Reason: Recheck today's complaints. - Problem is new. - Symptoms have improved. - Notes: You were seen in the ED for nausea, vomiting and diarrhea. Bloodwork along with scrotal ultrasound and CT scan of the abdomen and pelvis showed no acute findings. You were treated and improved with medications and IV fluids. You may return home. Continue Zofran as needed for nausea. Encourage clear liquids, then advance your diet as tolerated. Call your primary doctor at [place] in the morning to arrange to be seen for recheck. Return to the ED for any worsening abdominal pain, pain in the right low side, fever, inability to tolerate oral foods or liquids or any other concerns. Historical: - Allergies: no known allergies; - Home Meds: 1. none - PMHx: none; - PSHx: none; - Social history: Smoking status: Patient states was never smoker of tobacco. No barriers to communication noted, The patient speaks fluent Sinhala. - Family history: Not pertinent. - : The pt / caregiver states he / she is not on anticoagulants. Home medication list is obtained from the patient. - Exposure Risk Screening:: None identified. Vital Signs: 06/26 19:44 BP 114 / 69; Pulse 97; Resp 18; Temp 99.3(O); Pulse Ox 99% on R/A; Weight 81.37 kg / kb5 179.39 lbs (M); Height 5 ft. 11 in. (180.34 cm) (R); Pain 6/10; 22:35 BP 107 / 53; Pulse 81; Resp 16; Temp 99.6(O); Pulse Ox 98% on R/A; Pain 0/10; mf4 06/27 00:16 BP 110 / 65; Pulse 80; Resp 18; Temp 98.2(O); Pulse Ox 98% on R/A; Pain 3/10; lf1 06/26 19:44 Body Mass Index 25.02 (81.37 kg, 180.34 cm) kb5 MDM: 06/26 20:27 IV Saline Lock ordered. br1 20:28 morphine 4 mg IVP once ordered. br1 20:28 Ondansetron 4 mg IVP once ordered. br1 20:28 NS 0.9% 1000 ml IV at 150 mL/hr continuous ordered. br1 20:29 CBC with Diff Ordered. EDMS 20:29 BMP Ordered. EDMS 20:29 Liver Profile Ordered. EDMS 20:29 Lipase Ordered. EDMS 20:32 Scrotal, US Ordered. EDMS 20:32 CT ABD & PELVIS: IV and Oral Contrast Ordered. EDMS 20:32 Urinalysis Ordered. EDMS 20:32 Urine Culture Ordered. EDMS 20:42 Diatrizoate Meglumine & Sodium Liquid 10 ml PO once; mix in 290cc of water \T\ 2049 lf1 ordered. 20:42 Diatrizoate Meglumine & Sodium Liquid 10 ml PO once; mix in 290cc of water \T\ 2119 lf1 ordered. 20:57 DUPLEX SCAN LIMITED (DOPPLER) Ordered. EDMS 21:41 Urinalysis Reviewed. br1 21:52 DIFFERENTIAL NO CHARGE Ordered. EDMS 21:52 PLATELET ESTIMATE Ordered. EDMS 22:56 Financial registration complete. zo 22:57 [facility] [place] Payment Agreement was scanned into [employer] and attached to record. zo 23:09 CBC with Diff Reviewed. br1 23:09 BMP Reviewed. br1 23:09 Liver Profile Reviewed. br1 23:09 Lipase Reviewed. br1 23:09 PLATELET ESTIMATE Reviewed. br1 23:09 Scrotal, US Reviewed. br1 06/27 12:03 T-Sheet-- Draft Copy was scanned into [employer] and attached to record. gb 12:04 Radiology Report was scanned into [employer] and attached to record. gb Administered Medications: 06/26 21:52 Drug: Diatrizoate Meglumine & Sodium 10 ml [diatrizoate meglumine and diat.sodium 66 lf1 %-10 % oral solution (10 mL)] Route: PO; 21:52 Drug: Diatrizoate Meglumine & Sodium 10 ml [diatrizoate meglumine and diat.sodium 66 lf1 %-10 % oral solution (10 mL)] Route: PO; 21:53 Drug: morphine 4 mg [morphine 4 mg/mL intravenous cartridge (1 mL)] Route: IVP; Site: lf1 left antecubital; 22:36 Follow up: Response: Pain is decreased 4 06/27 00:21 Follow up: Response: Pain is decreased [facility] 06/26 21:53 Drug: Ondansetron 4 mg [ondansetron HCl 2 mg/mL intravenous solution (2 mL)] Route: lf1 IVP; Site: left antecubital; 06/27 00:21 Follow up: Response: Nausea is decreased [facility] 06/26 21:53 Drug: NS 0.9% 1000 ml [sodium chloride 0.9 % intravenous solution] Route: IV; Rate: 150 lf1 mL/hr; Site: left antecubital; 06/27 00:21 Follow up: IV Status: Infusion discontinued; IV Intake: 600ml 1 Signatures: Dispatcher [employer] EDMS Karolina Corbin, Vishnu Reg Maynor Lee Lisa, RN RN lf1 Gustavo Payne MD MD br1 Angelica Bains RN RN rs3 Popeye Blunt PURIFICATION OPERATOR 4 The chart was reviewed and I authenticate all verbal orders and agree with the evaluation and treatment provided.Attachments: 06/26 22:57 [facility] [place] Payment Agreement zo 06/27 12:03 T-Sheet-- Draft Copy gb Chart Complete MTDD
== END 2016-06-27 00:22 | disposition home or self-care (01) ==
LOC: M ED 19:43
DX: R11.2 Nausea with vomiting, unspecified (principal); R19.7 Diarrhea, unspecified
CPT/HCPCS: 36415; 74177; 76870; 80048; 80076; 81001; 83690; 85025; 87086; 93976; 96361; 96374; 96375; 99284; J2405; Q9963; Q9967

== ENCOUNTER → 2016-08-15 | Outpatient (REF) | payer OTHER ==
[2016-08-15 15:40] LABS: PROGRESSIVE MOTILITY (a) 51 % (>=32)
[2016-08-15 15:41] LABS: % NORMAL FORMS 12 % (>=4); IMMOTILITY 29 %; NON PROGRESSIVE MOTILITY (c) 20 %; SPERM# 52.2 M/Ejac (33-46); TOTAL FUNCTIONAL 7.1 M/Ejac.; TOTAL MOTILITY 71 % (>=40); TOTAL PROGRESSIVE SPERM 26.9 M/Ejac.
== END ==
LOC: M LAB REF 15:34
PROVIDERS: ATTEND Obstetrics & Gynecology
DX: N46.8 Other male infertility (principal)

== ENCOUNTER 2017-01-15 10:29 | Emergency (ER) | payer OTHER ==
[~2017-01-15] VITALS: Ht 180.3 cm; Wt 79.1 kg
[2017-01-15 10:30] VITALS: BP 115/69
[2017-01-15] MEDS ORDERED: ZOFR4TAB3 PO (13:20)
[2017-01-15] MEDS ORDERED: KEFL500C17 PO (13:20)
[2017-01-15] MEDS ORDERED: TESS100C PO (13:20)
[2017-01-16] MEDS ORDERED: MULT1TAB11 PO (15:29)
[2017-01-16] MEDS ORDERED: IRONCAP2 PO (15:29)
[2017-01-16] MEDS ORDERED: PROBCAP4 PO (15:29)
[2017-01-16] MEDS ORDERED: GUAISYP9 PO (17:53)
[2017-01-16] MEDS ORDERED: AZIT-12 PO (17:54)
== END 2017-01-15 13:57 | disposition home or self-care (01) ==
LOC: M ED 10:29
DX: J01.90 Acute sinusitis, unspecified (principal); R05 Cough; R11.0 Nausea

== ENCOUNTER 2017-01-16 15:17 | Emergency (ER) | payer OTHER ==
[~2017-01-16] VITALS: Ht 180.3 cm; Wt 79.1 kg
[~2017-01-16 15:17] MED LIST: KEFL500C17 PO; TESS100C PO; ZOFR4TAB3 PO
[2017-01-16] MEDS ORDERED: IRONCAP2 PO (15:29)
[2017-01-16] MEDS ORDERED: PROBCAP4 PO (15:29)
[2017-01-16] MEDS ORDERED: MULT1TAB11 PO (15:29)
[2017-01-16] MEDS ORDERED: ACETAMINOPHEN 325 MG TAB PO ONE (16:00)
[2017-01-16] MEDS ORDERED: KETOROLAC 30 MG/ML VIAL (J1885) IV ONE (16:00)
[2017-01-16] MEDS ORDERED: NS 1,000 ML IV ONE (16:00)
[2017-01-16] MEDS ORDERED: ALBUTEROL SULFATE 2.5 MG/0.5 ML INH NEB SOLN NEB ONE (16:00)
[2017-01-16 16:43] LABS: ADD MORPHOLOGY? YES; BASO % 0.3 % (0.0-1.0); EOS % 0.8 % (0.0-3.0); LARGE UNSTAINED CELL # 0.1 K/mm3 (0.0-0.4); LARGE UNSTAINED CELL % 2.6 % (0.0-4.0); LYMPH % 26.5 % (24.0-44.0); MEAN CORPUSCULAR HEMOGLOBIN 30.5 pg (27.0-33.0); MEAN CORPUSCULAR VOLUME 82.6 fl (80.0-96.0); MONO # 0.2 K/mm3 (0.0-0.8); MONO % 5.6 % (0.0-5.0); NEUTROPHILS # 2.2 K/mm3 (1.8-7.7); NEUTROPHILS % 64.3 % (36.0-66.0); PLATELET COUNT, AUTOMATED 139 k/mm3 (150-450); RED CELL DISTRIBUTION WIDTH 11.7 % (11.5-14.5); WHITE BLOOD COUNT 3.5 K/mm3 (4.0-10.0)
[2017-01-16 16:52] LABS: ANION GAP 10 MEQ/L (8-16); BLOOD UREA NITROGEN 11 MG/DL (7-18); CALCIUM LEVEL 7.8 MG/DL (8.5-10.1); CARBON DIOXIDE LEVEL 26 MEQ/L (21-32); CHLORIDE LEVEL 100 MEQ/L (98-107); CREATININE FOR GFR 0.86 MG/DL (0.70-1.30); GLOMERULAR FILTRATION RATE > 60.0 (>60); GLUCOSE, FASTING 121 MG/DL (70-105); POTASSIUM SERUM 3.1 MEQ/L (3.5-5.1); SODIUM LEVEL 136 MEQ/L (136-145)
--- NOTE | 2017-01-16 17:12 | REP ---
Clinical: Cough and fever. Technique: PA and lateral. Findings: Left lower lobe/lingular infiltrate compatible with pneumonia. Mediastinum and cardiac silhouette normal. The remainder of lung parker are clear. No effusion. No pneumothorax. Skeletal structures intact. Impression: Left lower lobe infiltrate compatible with pneumonia. Signed by Wilder Villar MD 01/16/2017 05:04 P
[2017-01-16 17:14] LABS: MEAN CORPUSCULAR HGB CONC 36.9 g/dl (32.0-36.5)
[2017-01-16] MEDS ORDERED: GUAISYP9 PO (17:53)
[2017-01-16] MEDS ORDERED: AZIT-12 PO (17:54)
[2017-01-16 17:59] VITALS: BP 124/70
[2017-01-16] MEDS ORDERED: AZITHROMYCIN 250 MG TAB PO ONE (18:00)
== END 2017-01-16 18:08 | disposition home or self-care (01) ==
LOC: M ED 15:17 → EDBD 15:17 → M ED 18:08
DX: J18.1 Lobar pneumonia, unspecified organism (principal); D61.818 Other pancytopenia; Z79.899 Other long term (current) drug therapy
CPT/HCPCS: 71020; 80048; 85025; 94640; 96361; 96374; 99283; J1885

== ENCOUNTER → 2021-10-04 | Outpatient (REF) ==
[~2021-10-04] MED LIST changes: +AZIT-12 PO; +GUAISYP9 PO; +IRONCAP2 PO; +MULT1TAB11 PO; +PROBCAP4 PO; +ZOFR4TAB14 PO; -ZOFR4TAB3 PO
== END ==
LOC: M PLALAB 12:58
PROVIDERS: ATTEND Internal Medicine
DX: M54.9 Dorsalgia, unspecified (principal)

== ENCOUNTER 2024-06-23 15:39 | Emergency (ER) | payer OTHER ==
[~2024-06-23] VITALS: Ht 180.3 cm; Wt 78.6 kg
[2024-06-23 16:01] VITALS: TEMP 98.1
[2024-06-23] MEDS: ACETAMINOPHEN *IV* 1,000 MG in IV 1 EA IV ONE (16:45)
[2024-06-23 17:30] VITALS: BP 122/77; O2SAT 99
== END 2024-06-23 18:03 | disposition home or self-care (01) ==
LOC: EDBD 15:39 → M ED 15:39
DX: S09.90XA Unspecified injury of head, initial encounter (principal); S16.1XXA Strain of muscle, fascia and tendon at neck level, initial encounter; M25.571 Pain in right ankle and joints of right foot; S60.511A Abrasion of right hand, initial encounter; V49.50XA Passenger injured in collision with unspecified motor vehicles in traffic accident, initial encounter; Y92.410 Unspecified street and highway as the place of occurrence of the external cause; Y99.9 Unspecified external cause status; Y93.89 Activity, other specified
CPT/HCPCS: 70450; 72125; 73610; 96374; 99284; J0131